=== PATIENT | male | born 1965 | race Caucasian/White ===

== ENCOUNTER → 2016-09-07 | Outpatient (CLI) | payer BC ==
--- NOTE | 2016-09-07 13:36 | CT ---
EXAMINATION TYPE: CT chest w con DATE OF EXAM: 09/07/2016 COMPARISON: NONE HISTORY: altelectasis CT DLP: 414.2 mGycm, Automated exposure control for dose reduction was used. CONTRAST: Performed injected with 100 mL of Omnipaque 300. TECHNIQUE: Axial images were obtained at 5 mm thick sections. Reconstructed images are reviewed on [employer] computer in the coronal plane. FINDINGS: Portion of the thyroid visualized is normal. Right basilar atelectasis is evident. Air bronchograms are present. Few scattered peripheral emphysematous blebs are present. No enlarged mediastinal or hilar adenopathy is evident. The ascending aorta diameter at the level o f the main pulmonary artery is 3.5 cm. The main pulmonary artery diameter at the bifurcation is 2.[address] sections are obtained through the upper abdomen. There is mild fatty infiltration liver. M ild atrophy of the pancreas is present. IMPRESSIONS: 1. Findings can be compatible with atelectasis at the right lung base. Pneumonia is considered less l ikely. Underlying mass is are not excluded. Follow-up with chest x-ray.
== END | disposition home or self-care (01) ==
LOC: RADCTMAIN 12:31
PROVIDERS: ATTEND Family Medicine
DX: J98.11 Atelectasis (principal); Z87.891 Personal history of nicotine dependence
CPT/HCPCS: 71260; Q9967

== ENCOUNTER 2016-09-20 10:03 | Day surgery (SDC) | payer BC ==
[2016-09-19 08:21] VITALS: BMI 28.7
[~2016-09-20 10:03] MED LIST: ALBUTEROL NEB (CONC) 2.5 MG/0.5 ML INHALATION ONE; LACTATED RINGERS 1,000 ML IV SCH; LIDOCAINE 1% 20 ML VIAL (10MG/ML) FOR IV START INTRADERMA PRN; LIDOCAINE 2% (PF) 20 MG/ML 10ML INHALATION ONE
--- NOTE | 2016-09-20 11:08 | FL ---
EXAMINATION TYPE: FL sniff test without CXR DATE OF EXAM: 09/20/2016 COMPARISON: NONE HISTORY: Diaphragm paralysis TECHNIQUE: Fluoroscopy.30sec fluoro time. 44 images FINDINGS: The diaphragms were evaluated normal breathing as well as upon sniffing. At normal inspiration there is elevation of the right hemidiaphragm relative to the left. There is pa radoxical motion of the right hemidiaphragm relative to its left-sided counterpart upon sniffing. Thi s suggests right-sided diaphragmatic paralysis. IMPRESSION: Findings suggestive right-sided diaphragmatic paralysis.
[2016-09-20 12:23] VITALS: TEMP 98.2
[2016-09-20] MEDS: LACTATED RINGERS 1,000 ML IV ONE ×2 (12:33→13:00)
[2016-09-20 12:38] LABS: Glucose,Whole Blood 103 mg/dL (75-99)
[2016-09-20] MEDS ORDERED: GLYCOPYRROLATE 0.2 MG/ML 2 ML VIAL ONE (13:02)
[2016-09-20] MEDS ORDERED: LIDOCAINE 1% INJ 10MG/ML (20 ML MDV) ONE (13:02)
[2016-09-20] MEDS ORDERED: HYDROmorphone (PF) 1 MG/ML ONE (13:02)
[2016-09-20] MEDS ORDERED: PROPOFOL 10 MG/ML 20 ML VIAL IV ONE (13:02)
[2016-09-20 13:42] VITALS: RESP 18
[2016-09-20 14:29] VITALS: BP 128/78; PULSE 98
[2016-09-20 18:40] LABS: RBC, Body Fluid 95 /uL
--- NOTE | 2016-09-21 08:51 | PCN ---
PROCEDURE: Bronchoscopy and bronchoalveolar lavage of the right middle lobe and the right lower lobe. PREOPERATIVE DIAGNOSIS: Right lower lobe collapse. POSTOPERATIVE DIAGNOSIS: Right lower lobe collapse. However, it is most likely right lower lobe collapse secondary to right hemidiaphragm paralysis. ANESTHESIA USED: Patient was given IV conscious sedation. Please refer to OBGYN SPECIALIST documentation. DESCRIPTION OF PROCEDURE: Patient was prepared according to the bronchoscopy protocol. O2 was applied via nasal cannula and via Ventimask applied over his mouth. We monitored during the whole procedure. His O2 saturation, blood pressure was intermittently monitored and cardiac rhythm was continuously monitored. After adequate IV conscious sedation, 2 mL of Lidocaine were instilled into the right nares and a bronchoscope was advanced through the right nares down to the area of the vocal cords which were noted to be patent and free of any lesions. Lidocaine was applied over the vocal cords, and the bronchoscope was advanced further down to the trachea. Minimal ( ) secretions were noted in the trachea and these were suctioned. More Lidocaine was applied over the tracheal wall, and the bronchoscope was advanced further down. Thorough examination was done of the [place], right upper lobe, right middle lobe, right lower lobe, left upper lobe, lingula and left lower lobe. There was no evidence of any endobronchial lesions. However, as I went down to the right lower lobe, the main opening was intact but the basilar and posterior as well as lateral segments were noted to be narrowed and easily collapsible. No evidence of endobronchial tumor was noted. Similar findings were noted in the right middle lobe bronchus. There was no evidence of right middle lobe syndrome. I was able to visualize the medial segment and the lateral segment of the right middle lobe without any difficulty, more so with lavaging both segments. After lavaging of the basilar segments of the right lower lobe and right middle lobe, lavage was sent for different diagnostic studies. Again, no evidence of any endobronchial pathology to suggest or cause right lower lobe atelectasis. Procedure was well tolerated, no evidence of any new complications , fluid obtained from the lavage was sent for different diagnostic studies including cytology and cultures. TOBIAS
== END 2016-09-20 14:30 | disposition home or self-care (01) ==
LOC: ORWHC2ENDO 10:03
PROVIDERS: ATTEND Internal Medicine
DX: J98.19 Other pulmonary collapse (principal); K21.9 Gastro-esophageal reflux disease without esophagitis; G47.33 Obstructive sleep apnea (adult) (pediatric); J44.9 Chronic obstructive pulmonary disease, unspecified; F17.210 Nicotine dependence, cigarettes, uncomplicated; Z79.899 Other long term (current) drug therapy; Z79.51 Long term (current) use of inhaled steroids; Z79.52 Long term (current) use of systemic steroids; Z79.2 Long term (current) use of antibiotics
CPT/HCPCS: 94640; 88108; 88305; 89050; 87070; 87205; 87116; 87102; 87206; 76000; 31624; J2001 ×2; J1170; J2704

== ENCOUNTER 2019-05-19 10:42 | Emergency (ER) | payer BC ==
[2019-05-19 11:01] VITALS: RESP 18; TEMP 97.8
--- NOTE | 2019-05-19 11:50 | ED ---
General Adult HPI - General Chief complaint: Shortness of Breath Stated complaint: SOB Time Seen by Provider: 05/19/19 11:11 Source: patient, RN notes reviewed, old records reviewed Mode of arrival: ambulatory Limitations: no limitations - History of Present Illness Initial comments: Patient is a 53-year-old male presents emergency department today with shortness of breath, dry cough, and fatigue. 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 He states is mainly feels very short of breath and dry cough. Patient is a smoker. Patient denies significant chest pain. He uses inhalers from time to time. Denies nausea, vomiting, loss of smell, headache, visual changes. - Related Data Home Medications Medication Instructions Recorded Confirmed Omeprazole [PriLOSEC] 20 mg PO AC-BRKFST 10/15/13 09/19/16 Sildenafil Citrate [Viagra] 25 mg PO DIRECTED PRN 10/15/13 09/19/16 Albuterol Inhaler (Bulk) [Ventolin 1 - 2 puff INHALATION Q6HR PRN 09/19/16 09/19/16 Hfa Inhaler] Fluticasone/Vilanterol [Breo 1 inhalation PO HS 09/19/16 09/19/16 Ellipta 100-25 Mcg Inhaler] Levofloxacin [Levaquin] 500 mg PO DAILY 09/19/16 09/19/16 Umeclidinium [place] [Incruse 1 puff INHALATION HS 09/19/16 09/19/16 Ellipta] predniSONE See Taper PO DAILY 09/19/16 09/19/16 Previous Rx's Medication Instructions Recorded Albuterol Inhaler [Ventolin Hfa 1 puff INHALATION RT-TID #1 puff 05/19/19 Inhaler] Albuterol Inhaler [Ventolin Hfa 1 puff INHALATION RT-TID #2 puff 05/19/19 Inhaler] Azithromycin [Zithromax Z-pack] 250 mg PO DIRECTED #6 tab 05/19/19 Azithromycin [Zithromax Z-pack] 250 mg PO DIRECTED #6 tab 05/19/19 predniSONE 50 mg PO DAILY #5 tablet 05/19/19 predniSONE 50 mg PO DAILY #5 tablet 05/19/19 Allergies Allergy/AdvReac Type Severity Reaction Status Date / Time No Known Allergies Allergy Verified 09/20/16 12:22 Review of Systems ROS Statement: Those systems with pertinent positive or pertinent negative responses have been documented in the HPI. ROS Other: All systems not noted in ROS Statement are negative. Past Medical History Past Medical History: GERD/Reflux Additional Past Medical History / Comment(s): 02/09 rt lung collapse Sep 2016,current steroid History of Any Multi-Drug Resistant Organisms: None Reported Date of last positivie culture/infection: 2010 MDRO Source:: BOIL ON CHEST Past Surgical History: Appendectomy Past Anesthesia/Blood Transfusion Reactions: Family History of Problems w/ Anesthesia Additional Past Anesthesia/Blood Transfusion Reaction / Comment(s): SUHA - SLOW TO AWAKEN, PONV. No hx blood transfusion Past Psychological History: No Psychological Hx Reported Smoking Status: Current every day smoker Past Alcohol Use History: Occasional Past Drug Use History: Marijuana - Past Family History Mother Family Medical History: No Reported History Father Family Medical History: Deep Vein Thrombosis (DVT) Additional Family Medical History / Comment(s): at age 89 had blood clots General Exam - General Exam Comments Initial Comments: 53-year-old male. Alert and oriented. No distress. Limitations: no limitations General appearance: alert, in no apparent distress Head exam: Present: atraumatic, normocephalic, normal inspection Eye exam: Present: normal appearance, PERRL, EOMI. Absent: scleral icterus, conjunctival injection, periorbital swelling ENT exam: Present: normal exam, mucous membranes moist Neck exam: Present: normal inspection. Absent: tenderness, meningismus, lymphadenopathy Respiratory exam: Present: wheezes. Absent: normal lung sounds bilaterally, respiratory distress, rales, rhonchi, stridor Cardiovascular Exam: Present: regular rate, normal rhythm, normal heart sounds. Absent: systolic murmur, diastolic murmur, rubs, gallop, clicks GI/Abdominal exam: Present: soft, normal bowel sounds. Absent: distended, tenderness, guarding, rebound, rigid Extremities exam: Present: normal inspection, full ROM, normal capillary refill. Absent: tenderness, pedal edema, joint swelling, calf tenderness Back exam: Present: normal inspection Neurological exam: Present: alert, oriented X3, CN II-XII intact Psychiatric exam: Present: normal affect, normal mood Skin exam: Present: warm, dry, intact, normal color. Absent: rash Course Vital Signs 05/19/19 05/19/19 05/19/19 10:57 11:30 12:00 Temperature 97.8 F Pulse Rate 98 97 Respiratory 18 18 Rate Blood Pressure 130/97 137/107 O2 Sat by Pulse 95 96 92 L Oximetry 05/19/19 13:00 Temperature Pulse Rate 80 Respiratory 18 Rate Blood Pressure 133/88 O2 Sat by Pulse 95 Oximetry Medical Decision Making - Medical Decision Making Patient is a 53-year-old male presents today for a valvular concerned for cough and difficulty breathing and wheezing. 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 Patient has wheezing. Patient was given IV over 15. Patient's blood work was reviewed mentally unremarkable assessment leukocytosis. Patient has chest x-ray shows evidence of a right perihilar infiltrate. With leukocy tosis, concern for infiltrates most likely bacterial pneumonia or bronchitis. He was wheezing and was given albuterol treatment. I discussed the with Dr. STOUT and he also examined the Patient. Determined Patient can be treated outpatient only with antibiotic and steroid. I discussed strict return parameters and he did have negative Covid testing. Discuss if still possibility of Covid virus with significant exposure and his symptoms. Discussed self quarantine. Patient understands treatment plan will comply. Return parameters were discussed. - Lab Data Result diagrams: 05/19/19 11:50 05/19/19 11:50 Lab Results 05/19/19 05/19/19 05/19/19 Range/Units 11:50 11:50 11:50 WBC 13.2 H (3.8-10.6) k/uL RBC 4.97 (4.30-5.90) m/uL Hgb 15.9 (13.0-17.5) gm/dL Hct 47.3 (39.0-53.0) % MCV 95.1 (80.0-100.0) fL MCH 32.1 (25.0-35.0) pg MCHC 33.7 (31.0-37.0) g/dL RDW 12.0 (11.5-15.5) % Plt Count 346 (150-450) k/uL Neutrophils % 68 % Lymphocytes % 19 % Monocytes % 5 % Eosinophils % 6 % Basophils % 0 % Neutrophils # 8.9 H (1.3-7.7) k/uL Lymphocytes # 2.5 (1.0-4.8) k/uL Monocytes # 0.6 (0-1.0) k/uL Eosinophils # 0.8 H (0-0.7) k/uL Basophils # 0.1 (0-0.2) k/uL PT 9.6 (9.0-12.0) sec INR 0.9 (<1.2) APTT 23.7 (22.0-30.0) sec Sodium 136 L (137-145) mmol/L Potassium 5.0 (3.5-5.1) mmol/L Chloride 102 (98-107) mmol/L Carbon Dioxide 28 (22-30) mmol/L Anion Gap 6 mmol/L BUN 18 (9-20) mg/dL Creatinine 0.74 (0.66-1.25) mg/dL Est GFR (CKD-EPI)AfAm >90 (>60 ml/min/1.73 sqM) Est GFR (CKD-EPI)NonAf >90 (>60 ml/min/1.73 sqM) Glucose 123 H (74-99) mg/dL Plasma Lactic Acid Piero (0.7-2.0) mmol/L Calcium 9.9 (8.4-10.2) mg/dL Magnesium 1.9 (1.6-2.3) mg/dL Ferritin 195.6 (22.0-322.0) ng/mL Total Bilirubin 0.7 (0.2-1.3) mg/dL AST 30 (17-59) U/L ALT 35 (4-49) U/L Alkaline Phosphatase 80 (38-126) U/L Lactate Dehydrogenase 400 (313-618) U/L C-Reactive Protein 5.2 (<10.0) mg/L Total Protein 8.3 H (6.3-8.2) g/dL Albumin 4.9 (3.5-5.0) g/dL Procalcitonin (0.02-0.09) ng/mL Coronavirus (PCR) (Not Detectd) Influenza Type A RNA (Not Detectd) Influenza Type B (PCR) (Not Detectd) 05/19/19 05/19/19 05/19/19 Range/Units 11:50 11:50 11:50 WBC (3.8-10.6) k/uL RBC (4.30-5.90) m/uL Hgb (13.0-17.5) gm/dL Hct (39.0-53.0) % MCV (80.0-100.0) fL MCH (25.0-35.0) pg MCHC (31.0-37.0) g/dL RDW (11.5-15.5) % Plt Count (150-450) k/uL Neutrophils % % Lymphocytes % % Monocytes % % Eosinophils % % Basophils % % Neutrophils # (1.3-7.7) k/uL Lymphocytes # (1.0-4.8) k/uL Monocytes # (0-1.0) k/uL Eosinophils # (0-0.7) k/uL Basophils # (0-0.2) k/uL PT (9.0-12.0) sec INR (<1.2) APTT (22.0-30.0) sec Sodium (137-145) mmol/L Potassium (3.5-5.1) mmol/L Chloride (98-107) mmol/L Carbon Dioxide (22-30) mmol/L Anion Gap mmol/L BUN (9-20) mg/dL Creatinine (0.66-1.25) mg/dL Est GFR (CKD-EPI)AfAm (>60 ml/min/1.73 sqM) Est GFR (CKD-EPI)NonAf (>60 ml/min/1.73 sqM) Glucose (74-99) mg/dL Plasma Lactic Acid Piero 1.3 (0.7-2.0) mmol/L Calcium (8.4-10.2) mg/dL Magnesium (1.6-2.3) mg/dL Ferritin (22.0-322.0) ng/mL Total Bilirubin (0.2-1.3) mg/dL AST (17-59) U/L ALT (4-49) U/L Alkaline Phosphatase (38-126) U/L Lactate Dehydrogenase (313-618) U/L C-Reactive Protein (<10.0) mg/L Total Protein (6.3-8.2) g/dL Albumin (3.5-5.0) g/dL Procalcitonin 0.05 (0.02-0.09) ng/mL Coronavirus (PCR) Not Detected (Not Detectd) Influenza Type A RNA Not Detected (Not Detectd) Influenza Type B (PCR) Not Detected (Not Detectd) 05/19/19 14:46 EKG performed 1219 shows normal sinus rhythm right superior axis deviation. Pulmonary disease pattern. Ventricular rate 92 beats were minute. Was 1:30 milliseconds. QS duration is 82 ms. QTc is 358/442 ms. - Radiology Data Radiology results: report reviewed Chest x-ray shows right infiltrate. Crying for bronchitis or pneumonia. Disposition Clinical Impression: Pneumonia Disposition: HOME SELF-CARE Condition: Good Instructions (If sedation given, give patient instructions): Bacterial Pneumoni a (ED) Additional Instructions: Patient should return if there is any worsening signs or symptoms. Using albuterol treatments at home and take meds as prescribed. Follow-up with your primary care physician. Patient should self quarantine as a suspected COVID for the next 14 days. Prescriptions: predniSONE 50 mg PO DAILY #5 tablet predniSONE 50 mg PO DAILY #5 tablet Albuterol Inhaler [Ventolin Hfa Inhaler] 1 puff INHALATION RT-TID #1 puff Albuterol Inhaler [Ventolin Hfa Inhaler] 1 puff INHALATION RT-TID #2 puff Azithromycin [Zithromax Z-pack] 250 mg PO DIRECTED #6 tab Azithromycin [Zithromax Z-pack] 250 mg PO DIRECTED #6 tab Is patient prescribed a controlled substance at d/c from ED?: No Referrals: Sherman Ellison MD [Primary Care Provider] - 1-2 days Time of Disposition: 13:12
[2019-05-19 12:08] LABS: Basophils # (A) 0.1 k/uL (0-0.2); Basophils % (A) 0 %; Eosinophils # (A) 0.8 k/uL (0-0.7); Eosinophils % (A) 6 %; HCT 47.3 % (39.0-53.0); HGB 15.9 gm/dL (13.0-17.5); Lymphocytes # (A) 2.5 k/uL (1.0-4.8); Lymphocytes % (A) 19 %; MCH 32.1 pg (25.0-35.0); MCHC 33.7 g/dL (31.0-37.0); MCV 95.1 fL (80.0-100.0); Mean Platelet Volume 8.4; Monocytes # (A) 0.6 k/uL (0-1.0); Monocytes % (A) 5 %; Neutrophils # (A) 8.9 k/uL (1.3-7.7); Neutrophils % (A) 68 %; Platelet Count 346 k/uL (150-450); RBC 4.97 m/uL (4.30-5.90); WBC 13.2 k/uL (3.8-10.6)
--- NOTE | 2019-05-19 12:21 | XR ---
EXAMINATION TYPE: XR chest 1V portable DATE OF EXAM: 05/19/2019 COMPARISON: 09/15/2016 INDICATION: Pneumonia TECHNIQUE: Single frontal view of the chest is obtained. FINDINGS: The heart size is upper limits of normal. The pulmonary vasculature is normal. There is mild right perihilar infiltrate. Correlate for acute bronchitis or pneumonia. There is chron ic elevation of the right diaphragm. IMPRESSION: 1. Right perihilar infiltrate. Correlate for bronchitis or pneumonia.
[2019-05-19 12:23] LABS: ALT 35 U/L (4-49); AST 30 U/L (17-59); African American GFR (CKD) >90 (>60 ml/min/1.73 sqM); Albumin 4.9 g/dL (3.5-5.0); Alkaline Phosphatase 80 U/L (38-126); Anion Gap 6 mmol/L; Blood Urea Nitrogen 18 mg/dL (9-20); C Reactive Protein 5.2 mg/L (<10.0); Calcium 9.9 mg/dL (8.4-10.2); Carbon Dioxide 28 mmol/L (22-30); Chloride 102 mmol/L (98-107); Glucose 123 mg/dL (74-99); LDH 400 U/L (313-618); Magnesium 1.9 mg/dL (1.6-2.3); Non-African American GFR(CKD) >90 (>60 ml/min/1.73 sqM); Sodium 136 mmol/L (137-145); Total Bilirubin 0.7 mg/dL (0.2-1.3); Total Protein 8.3 g/dL (6.3-8.2)
[2019-05-19] MEDS ORDERED: ALBUTEROL HFA INHALER INHALATION STA (12:26)
[2019-05-19] MEDS ORDERED: methylPREDNISolone SOD SUCCI 125 MG/2 ML VIAL IV STA (12:26)
[2019-05-19 12:27] LABS: INR 0.9 (<1.2); Partial Thromboplastin Time 23.7 sec (22.0-30.0); Prothrombin Time 9.6 sec (9.0-12.0)
[2019-05-19] MEDS ORDERED: cefTRIAXone IN SWFI 1,000 MG/10 ML SYRINGE IVP STA (12:35)
[2019-05-19 13:02] VITALS: BP 133/88; PULSE 80
[2019-05-19 18:59] LABS: Ferritin 195.6 ng/mL (22.0-322.0)
== END 2019-05-19 13:35 | disposition home or self-care (01) ==
LOC: EC 10:42
DX: J18.9 Pneumonia, unspecified organism (principal); Z20.828 Contact with and (suspected) exposure to other viral communicable diseases
CPT/HCPCS: 36415; 94640; 93005; 80053; 82728; 83605; 83615; 83735; 85025; 85610; 85730; 86140; 87040; 87502; 84145; 87635; 71045; 99285; 96374; 96375; J2930; J0696

== ENCOUNTER 2019-05-27 01:42 | Inpatient (IN) | payer BC ==
[2019-05-27] MEDS ORDERED: IPRATROPIUM-ALBUTEROL 3 ML NEB INHALATION STA (01:52)
--- NOTE | 2019-05-27 02:02 | ED ---
General Adult HPI - General Chief complaint: Shortness of Breath Stated complaint: SOB Time Seen by Provider: 05/27/19 01:51 Source: patient Mode of arrival: ambulatory Limitations: no limitations - History of Present Illness Initial comments: Dictation was produced using [employer] dictation software. please excuse any grammatical, word or spelling errors. This patient was cared for during a federal and state declared state of emergency secondary to Covid 19 Chief Complaint: 53-year-old male presents with dyspnea History of Present Illness: Patient is a 53-year-old male presents today with dyspnea. Patient works at the [employer]. He completed a course of azithromycin, prednisone. He is also given albuterol inhaler. Patient states his symptoms improved. Her last 48 hours patient states his symptoms get worse. He's been coughing, wheezing has been really short of breath. Patient feels like he cannot get any air. 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 Patient denies any constitutional symptoms. He does smoke. He continues to smoke but denies any history of COPD. He says primary care doctor recently and was prescribed Bactrim. The ROS documented in this emergency department record has been reviewed and confirmed by me. Those systems with pertinent positive or negative responses have been documented in the HPI. All other systems are other negative and/or noncontributory. PHYSICAL EXAM: General Impression: Alert and oriented x3, not in acute distress HEENT: Normocephalic atraumatic, extra-ocular movements intact, pupils equal and reactive to light bilaterally, mucous membranes moist. Cardiovascular: Heart regular rate and rhythm Chest: 3-4 word senses, no retractions, audibly wheezing Abdomen: Bowel sounds present, abdomen soft, non-tender, non-distended, no organomegaly Musculoskeletal: Pulses present and equal in all extremities, no peripheral edema Motor: no focal deficits noted Neurological: CN II-XII grossly intact, no focal motor or sensory deficits noted Skin: Intact with no visualized rashes Psych: Normal affect and mood ED course: 53-year-old male presents with recurrent dyspnea. Upon arrival shows heart rate of 104, rest of vital signs within acceptable limits. Laboratory evaluation obtained. Leukocytosis 17.6. Positive neutrophilia. Coag panel unremarkable. Metabolic panel is negative. Current status test is negative. Chest x-ray shows right basilar infiltrate. Clinical presentation consistent with lobar pneumonia. Considering patient had completed a course of antibiotics and has persistent symptoms. Patient's failed outpatient treatment. Patient will be admitted for pneumonia, early sepsis. Patient be admitted to Dr. Newby's service. Pulmonology consulted.Patient reevaluated at bedside with improvement of tachycardia and respiratory symptoms after breathing treatm ent. EKG interpretation: Ventricular rate 111, sinus tachycardia,. Interval 1:30, QRS 82, QTc 440. No CA prolongation, no QTC prolongation, no ST or T-wave changes noted. Overall, this EKG is unremarkable - Related Data Home Medications Medication Instructions Recorded Confirmed Omeprazole [PriLOSEC] 20 mg PO AC-BRKFST 10/15/13 09/19/16 Sildenafil Citrate [Viagra] 25 mg PO DIRECTED PRN 10/15/13 09/19/16 Albuterol Inhaler (Bulk) [Ventolin 1 - 2 puff INHALATION Q6HR PRN 09/19/16 09/19/16 Hfa Inhaler] Fluticasone/Vilanterol [Breo 1 inhalation PO HS 09/19/16 09/19/16 Ellipta 100-25 Mcg Inhaler] Levofloxacin [Levaquin] 500 mg PO DAILY 09/19/16 09/19/16 Umeclidinium [place] [Incruse 1 puff INHALATION HS 09/19/16 09/19/16 Ellipta] predniSONE See Taper PO DAILY 09/19/16 09/19/16 Previous Rx's Medication Instructions Recorded Albuterol Inhaler [Ventolin Hfa 1 puff INHALATION RT-TID #1 puff 05/19/19 Inhaler] Albuterol Inhaler [Ventolin Hfa 1 puff INHALATION RT-TID #2 puff 05/19/19 Inhaler] Azithromycin [Zithromax Z-pack] 250 mg PO DIRECTED #6 tab 05/19/19 Azithromycin [Zithromax Z-pack] 250 mg PO DIRECTED #6 tab 05/19/19 predniSONE 50 mg PO DAILY #5 tablet 05/19/19 predniSONE 50 mg PO DAILY #5 tablet 05/19/19 Allergies Allergy/AdvReac Type Severity Reaction Status Date / Time No Known Allergies Allergy Verified 09/20/16 12:22 Review of Systems ROS Statement: Those systems with pertinent positive or pertinent negative responses have been documented in the HPI. ROS Other: All systems not noted in ROS Statement are negative. Past Medical History Past Medical History: GERD/Reflux Additional Past Medical History / Comment(s): 02/09 rt lung collapse August/Sep 2016,current steroid History of Any Multi-Drug Resistant Organisms: None Reported Date of last positivie culture/infection: 2010 MDRO Source:: BOIL ON CHEST Past Surgical History: Appendectomy Past Anesthesia/Blood Transfusion Reactions: Family History of Problems w/ Anesthesia Additional Past Anesthesia/Blood Transfusion Reaction / Comment(s): SUHA - SLOW TO AWAKEN, PONV. No hx blood transfusion Past Psychological History: No Psychological Hx Reported Smoking Status: Current every day smoker Past Alcohol Use History: Occasional Past Drug Use History: Marijuana - Past Family History Mother Family Medical History: No Reported History Father Family Medical History: Deep Vein Thrombosis (DVT) Additional Family Medical History / Comment(s): at age 89 had blood clots General Exam Limitations: no limitations Course Vital Signs 05/27/19 01:45 Temperature 97.9 F Pulse Rate 104 H Respiratory 18 Rate Blood Pressure 128/82 O2 Sat by Pulse 96 Oximetry Medical Decision Making - Lab Data Result diagrams: 05/27/19 02:06 05/27/19 02:06 Lab Results 05/27/19 05/27/19 05/27/19 Range/Units 02:04 02:06 02:06 WBC 17.6 H (3.8-10.6) k/uL RBC 4.90 (4.30-5.90) m/uL Hgb 16.6 (13.0-17.5) gm/dL Hct 47.5 (39.0-53.0) % MCV 96.8 (80.0-100.0) fL MCH 33.9 (25.0-35.0) pg MCHC 35.0 (31.0-37.0) g/dL RDW 12.2 (11.5-15.5) % Plt Count 311 (150-450) k/uL Neutrophils % 87 % Lymphocytes % 5 % Monocytes % 3 % Eosinophils % 5 % Basophils % 0 % Neutrophils # 15.3 H (1.3-7.7) k/uL Lymphocytes # 0.8 L (1.0-4.8) k/uL Monocytes # 0.5 (0-1.0) k/uL Eosinophils # 0.8 H (0-0.7) k/uL Basophils # 0.1 (0-0.2) k/uL PT 10.0 (9.0-12.0) sec INR 1.0 (<1.2) APTT 23.4 (22.0-30.0) sec Sodium (137-145) mmol/L Potassium (3.5-5.1) mmol/L Chloride (98-107) mmol/L Carbon Dioxide (22-30) mmol/L Anion Gap mmol/L BUN (9-20) mg/dL Creatinine (0.66-1.25) mg/dL Est GFR (CKD-EPI)AfAm (>60 ml/min/1.73 sqM) Est GFR (CKD-EPI)NonAf (>60 ml/min/1.73 sqM) Glucose (74-99) mg/dL Calcium (8.4-10.2) mg/dL Troponin I (0.000-0.034) ng/mL NT-Pro-B Natriuret Pep pg/mL Coronavirus (PCR) Not Detected (Not Detectd) 05/27/19 05/27/19 05/27/19 Range/Units 02:06 02:06 02:06 WBC (3.8-10.6) k/uL RBC (4.30-5.90) m/uL Hgb (13.0-17.5) gm/dL Hct (39.0-53.0) % MCV (80.0-100.0) fL MCH (25.0-35.0) pg MCHC (31.0-37.0) g/dL RDW (11.5-15.5) % Plt Count (150-450) k/uL Neutrophils % % Lymphocytes % % Monocytes % % Eosinophils % % Basophils % % Neutrophils # (1.3-7.7) k/uL Lymphocytes # (1.0-4.8) k/uL Monocytes # (0-1.0) k/uL Eosinophils # (0-0.7) k/uL Basophils # (0-0.2) k/uL PT (9.0-12.0) sec INR (<1.2) APTT (22.0-30.0) sec Sodium 132 L (137-145) mmol/L Potassium 4.3 (3.5-5.1) mmol/L Chloride 95 L (98-107) mmol/L Carbon Dioxide 27 (22-30) mmol/L Anion Gap 10 mmol/L BUN 14 (9-20) mg/dL Creatinine 0.70 (0.66-1.25) mg/dL Est GFR (CKD-EPI)AfAm >90 (>60 ml/min/1.73 sqM) Est GFR (CKD-EPI)NonAf >90 (>60 ml/min/1.73 sqM) Glucose 164 H (74-99) mg/dL Calcium 9.1 (8.4-10.2) mg/dL Troponin I <0.012 (0.000-0.034) ng/mL NT-Pro-B Natriuret Pep 70 pg/mL Coronavirus (PCR) (Not Detectd) Disposition Clinical Impression: Pneumonia Disposition: ADMITTED IP TO THIS HOSP Condition: Fair Referrals: Sherman Ellison MD [Primary Care Provider] - 1-2 days Decision Time: 03:01
[2019-05-27] MEDS ORDERED: ALBUTEROL HFA INHALER INHALATION STA (02:12)
--- NOTE | 2019-05-27 02:16 | XR ---
EXAMINATION TYPE: XR chest 1V portable DATE OF EXAM: 05/27/2019 COMPARISON: 05/19/2019 HISTORY: Short of breath. Cough. TECHNIQUE: FINDINGS: There is elevated right diaphragm with infiltrate and atelectasis at the right lung base. T here is mild atelectasis left midlung. There is coarsening of interstitial markings. There is no fredrick s heart failure. IMPRESSION: There is some chronic infiltrate and atelectasis at the right lung base and chronic eleva zeina right diaphragm unchanged. There is probably pulmonary fibrosis. No definite heart failure.
[2019-05-27 02:24] LABS: Basophils # (A) 0.1 k/uL (0-0.2); Basophils % (A) 0 %; Eosinophils # (A) 0.8 k/uL (0-0.7); Eosinophils % (A) 5 %; HCT 47.5 % (39.0-53.0); HGB 16.6 gm/dL (13.0-17.5); Lymphocytes # (A) 0.8 k/uL (1.0-4.8); Lymphocytes % (A) 5 %; MCH 33.9 pg (25.0-35.0); MCV 96.8 fL (80.0-100.0); Mean Platelet Volume 8.4; Monocytes # (A) 0.5 k/uL (0-1.0); Monocytes % (A) 3 %; Neutrophils # (A) 15.3 k/uL (1.3-7.7); Neutrophils % (A) 87 %; Platelet Count 311 k/uL (150-450); RDW 12.2 % (11.5-15.5); WBC 17.6 k/uL (3.8-10.6)
[2019-05-27 02:25] LABS: African American GFR (CKD) >90 (>60 ml/min/1.73 sqM); Anion Gap 10 mmol/L; Blood Urea Nitrogen 14 mg/dL (9-20); Calcium 9.1 mg/dL (8.4-10.2); Carbon Dioxide 27 mmol/L (22-30); Chloride 95 mmol/L (98-107); Glucose 164 mg/dL (74-99); Non-African American GFR(CKD) >90 (>60 ml/min/1.73 sqM); Potassium 4.3 mmol/L (3.5-5.1); Sodium 132 mmol/L (137-145)
[2019-05-27 02:28] LABS: Partial Thromboplastin Time 23.4 sec (22.0-30.0)
[2019-05-27] MEDS ORDERED: AZITHROMYCIN 500 MG in SODIUM CHLORIDE 0.9% 250 ML IVPB STA (02:43)
[2019-05-27] MEDS ORDERED: cefTRIAXone IN SWFI 1,000 MG/10 ML SYRINGE IVP STA (02:43)
[2019-05-27] MEDS ORDERED: DEXAMETHASONE SOD PHOSPHATE 10 MG/ML 1 ML VIAL IV STA (02:45)
[2019-05-27] MEDS ORDERED: PNEUMONIA PROTOCOL UTILIZED 1 EACH MISC PO PRN (02:56)
[2019-05-27] MEDS ORDERED: IPRATROPIUM-ALBUTEROL 3 ML NEB INHALATION SCH ×2 (08:00→12:00)
[2019-05-27] MEDS ORDERED: ALBUTEROL HFA INHALER INHALATION SCH ×2 (08:00→12:00)
[2019-05-27] MEDS ORDERED: IPRATROPIUM-ALBUTEROL 3 ML NEB INHALATION PRN ×2 (10:13→12:14)
[2019-05-27] MEDS ORDERED: RX INFO: IV CONTRAST WAS GIVEN 1 EACH MISC MISCELLANE PRN (10:14)
[2019-05-27] MEDS ORDERED: ALBUTEROL HFA INHALER INHALATION PRN ×2 (10:22→11:31)
--- NOTE | 2019-05-27 11:17 | CT ---
EXAMINATION TYPE: CT chest w con DATE OF EXAM: 05/27/2019 COMPARISON: 09/07/2016 HISTORY: COPD, SOB CT DLP: 457.6 mGycm, Automated exposure control for dose reduction was used. CONTRAST: Performed injected with 100 mL of Isovue 300. TECHNIQUE: Axial images were obtained at 5 mm thick sections. Reconstructed images are reviewed on [facility] computer in the coronal plane. FINDINGS: Portion of the thyroid visualized is normal. Few emphysematous blebs and bulla are at the lung apices. There is infiltrate along the right diaphra gm which is elevated within the right middle lobe. Atelectasis and pneumonia could be considered. Pan e posterior medial dependent right lung infiltrate may be present likely atelectasis There is a 1.0 cm pretracheal lymph node in the superior mediastinum. An additional pretracheal lymp h node above the [place] measures 1.1 cm. A left peribronchial lymph node measures 0.9 cm there are ad ditional shotty lymph nodes present. The Ascending aorta diameter at the level of the main pulmonary artery is 3.7 cm. The main pulmonary artery diameter at the bifurcation is 2.[address] sections are obtained through the upper abdomen. There is mild fatty infiltration within [facility] liver. IMPRESSIONS: 1. Compressive atelectasis is present at the right middle lobe lung base. The right diaphragm is elev ated. Some dependent posterior right lung compressive atelectasis present. 2. Mild emphysematous changes. 3. A few scattered enlarged mediastinal lymph nodes discussed above. Additional shotty lymphadenopath y is present.
[2019-05-27] MEDS ORDERED: SILDENAFIL 20 MG TAB PO PRN (11:31)
--- NOTE | 2019-05-27 12:14 | P.CNPUL ---
History of Present Illness Consult date: 05/27/19 Reason for consult: dyspnea, cough Chief complaint: Shortness of breath History of present illness: 53-year-old white male patient of Dr. Ellison, with past medical history of COPD, history of chronic elevation of the right diaphragm, chronic and ongoing history of smoking, GERD/reflux, who used to follow with Dr. Gallardo in the pulmonary clinic. 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 Patient was in the emergency department on 05/19/2019 with complaints of shortness of breath, dry cough and fatigue. Denied any chest pain, he only uses his albuterol inhaler occasionally, patient used to be on Breo Ellipta and Inkruse inhaler a few years back, however it does not look like he hasn't refilled them in a while. Denied any nausea, vomiting loss of smell, headaches or visual changes. He denied any fever. Patient has shortness of breath and wheezing. His blood work was unremarkable at that time, with only mild leukocytosis, and diabetes EF 13.2, lymphocyte at 2.5, BMP was within normal limits, ferritin, LDH, CRP were all within normal limits. Influenza, with 19 testing was negative. Pro-calcitonin was negative at 0.05. Chest x-ray showed a right infiltrate, possibility of bronchitis or pneumonia, patient was given prednisone taper, Ventolin inhaler, and Zithromax, and was told to follow- up with his primary care provider in one to 2 days. Patient states he felt better while she was on steroids and antibiotics however when he completed them his symptoms of shortness of breath recurred and today on 05/27/2019 patient presented to the emergency department with complaints of worsening dyspnea, coughing, wheezing. Patient continues to smoke. He denies any body aches, fever or chills. He did follow up with his PCP and was prescribed Bactrim. Chest x-ray was completed today on 05/27/2019 showing chronic infiltrate and atelectasis at the right lung base and chronically elevated right diaphragm which is unchanged from previous chest x-ray, mild atelectasis at the left mid lung, and coarsening of interstitial markings. Vital signs are stable, patient is afebrile. Labs today show white blood cell count of 17.6, hemoglobin is 16.6, leukocyte level is 0.8, INR was 1.0, sodium is 132, potassium is 4.3, chloride is 95, CO2 is 27, BUN is 14, creatinine 0.7, troponin was less than 0.012, proBNP was within normal limits at 70, coronavirus test was repeated and was negative. Patient was started on Zithromax, Rocephin and we were asked to see the patient in evaluation for his shortness of breath Review of Systems All systems: negative Constitutional: Denies chills, Denies fever Eyes: denies blurred vision, denies pain Ears, nose, mouth and throat: Denies headache, Denies sore throat Cardiovascular: Denies chest pain, Denies shortness of breath Respiratory: Reports cough, Reports dyspnea Gastrointestinal: Denies abdominal pain, Denies diarrhea, Denies nausea, Denies vomiting Musculoskeletal: Denies myalgias Integumentary: Denies pruritus, Denies rash Neurological: Denies numbness, Denies weakness Psychiatric: Denies anxiety, Denies depression Endocrine: Denies fatigue, Denies weight change Past Medical History Past Medical History: GERD/Reflux Additional Past Medical History / Comment(s): 02/09 rt lung collapse August/Sep 2016,current steroid History of Any Multi-Drug Resistant Organisms: None Reported Date of last positivie culture/infection: 2010 MDRO Source:: BOIL ON CHEST Past Surgical History: Appendectomy Past Anesthesia/Blood Transfusion Reactions: Family History of Problems w/ Anesthesia Additional Past Anesthesia/Blood Transfusion Reaction / Comment(s): SUHA - SLOW TO AWAKEN, PONV. No hx blood transfusion Past Psychological History: No Psychological Hx Reported Smoking Status: Current every day smoker Past Alcohol Use History: Occasional Additional Past Alcohol Use History / Comment(s): started smoking at age 11,1ppd, last 2 weeks smoking 1-2 cig per day Past Drug Use History: Marijuana - Past Family History Mother Family Medical History: No Reported History Father Family Medical History: Deep Vein Thrombosis (DVT) Additional Family Medical History / Comment(s): at age 89 had blood clots Medications and Allergies Home Medications Medication Instructions Recorded Confirmed Type Omeprazole [PriLOSEC] 20 mg PO AC-BRKFST 10/15/13 05/27/19 History Albuterol Inhaler [Ventolin Hfa 1 puff INHALATION RT-TID PRN 05/27/19 05/27/19 History Inhaler] Sildenafil Citrate [Sildenafil] 20 mg PO DAILY PRN 05/27/19 05/27/19 History Allergies Allergy/AdvReac Type Severity Reaction Status Date / Time No Known Allergies Allergy Verified 05/27/19 11:04 Physical Exam Vitals: Vital Signs Temp Pulse Pulse Resp BP BP Pulse Ox 05/27/19 07:00 98.8 F 102 H 20 128/78 96 05/27/19 03:14 94 20 127/88 95 05/27/19 01:45 97.9 F 104 H 18 128/82 96 Intake and Output 05/26/19 05/27/19 05/27/19 22:59 06:59 14:59 Intake Total 350 Balance 350 Intake: Intake, IV Titration 250 Amount Azithromycin 500 mg In 250 Sodium Chloride 0.9% 250 ml @ 250 mls/hr IVPB ONCE STA Rx#:[id number] Oral 100 Other: Voiding Method Toilet Urinal # Voids 1 Weight 90.718 kg GENERAL EXAM: Alert, pleasant, 53-year-old white male, with a pulse ox of 96% on 4 L comfortable in no apparent distress. HEAD: Normocephalic/atraumatic. EYES: Normal reaction of pupils, equal size. Conjunctiva pink, sclera white. NOSE: Clear with pink turbinates. THROAT: No erythema or exudates. NECK: No masses, no JVD, no thyroid enlargement, no adenopathy. CHEST: No chest wall deformity. Symmetrical expansion. LUNGS: Equal air entry with diminished breath sounds bilaterally, and prolonged expiratory phase CVS: Regular rate and rhythm, normal S1 and S2, no gallops, no murmurs, no rubs ABDOMEN: Soft, nontender. No hepatosplenomegaly, normal bowel sounds, no guarding or rigidity. EXTREMITIES: No clubbing, no edema, no cyanosis, 2+ pulses and upper and lower extremities. MUSCULOSKELETAL: Muscle strength and tone normal. SPINE: No scoliosis or deformity SKIN: No rashes CENTRAL NERVOUS SYSTEM: Alert and oriented -3. No focal deficits, tone is normal in all 4 extremities. PSYCHIATRIC: Alert and oriented -3. Appropriate affect. Intact judgment and insight. Results - Laboratory Findings CBC and BMP: 05/27/19 02:06 05/27/19 02:06 PT/INR, D-dimer PT 10.0 sec (9.0-12.0) 05/27/19 02:06 INR 1.0 (<1.2) 05/27/19 02:06 Abnormal lab findings: Abnormal Labs 05/27/19 05/27/19 02:06 02:06 WBC 17.6 H Neutrophils # 15.3 H Lymphocytes # 0.8 L Eosinophils # 0.8 H Sodium 132 L Chloride 95 L Glucose 164 H - Diagnostic Findings Chest x-ray: report reviewed, image reviewed Assessment and Plan Plan: Assessment: #1. Dyspnea, shortness of breath, related to acute exacerbation of COPD, no definite evidence of pneumonia on the chest x-ray, chest x-ray shows chronic infiltrate and atelectasis at the right lung base and chronically elevated right diaphragm, and mild atelectasis at the left mid lung. Chest CT showed mild emphysematous changes, compressive atelectasis at the right middle lobe lung base, elevated right hemidiaphragm,-dependent right lung compressive atelectasis, a few scattered enlarged mediastinal lymph nodes, with 1 cm pretracheal lymph node in the superior mediastinum, and additional pretracheal lymph node above the [place] measuring 1.1 cm, a left peribronchial lymph node measuring 0.9 cm with an additional shoddy lymph node. COVID 19 testing was negative 2, on 05/19/2019 and on 05/27/2019. Influenza screen was negative #2. Chronic elevation of the right hemidiaphragm, with unclear etiology #3. History of chronic obstructive pulmonary disease, not oxygen or steroid dependent #4. Chronic smoker, patient carries a [id number] smoking history, currently down to 2 cigarettes per day #5. GERD/reflux #6. History of right lower lobe collapse and atelectasis with right diaphragm paralysis, and patient had bronchoscopy on 09/21/2016, which showed no endobronchial tumor, and bronchoalveolar lavage cytology showed no cytologically malignant cells Plan: Continue with Zithromax and Rocephin, no clear evidence of pneumonia on the chest x-ray in the CAT scan, mediastinal adenopathy noted on the computed tomography scan of the chest and will be followed. We'll add IV steroids, nebulized DuoNeb, Pulmicort, Perforomist. Follow blood work in the morning. Will continue to follow I performed a history & physical examination of the patient and discussed their management with my nurse practitioner, Eli Banks. I reviewed the nurse practitioner's note and agree with the documented findings and plan of care. Lung sounds are positive for diminished breath sounds, with prolongation of expiratory phase. The findings and the impression was discussed with the patient. I attest to the documentation by the nurse practitioner. Time with Patient: Greater than 30
[2019-05-27] MEDS: methylPREDNISolone SOD SUCCI 125 MG/2 ML VIAL IV SCH ×3 (13:16→23:53)
[2019-05-27] MEDS: IPRATROPIUM-ALBUTEROL 3 ML NEB INHALATION SCH ×2 (15:40→19:55)
[2019-05-27 16:31] LABS: Glucose,Whole Blood 252 mg/dL (75-99)
[2019-05-27] MEDS: INSULIN ASPART (NovoLOG) 100 UNIT/ML VIAL SQ SCH ×2 (16:47→21:17)
--- NOTE | 2019-05-27 19:18 | P.HPIM ---
History of Present Illness H&P Date: 05/27/19 Chief Complaint: Short of breath History of presenting complaint: This is a 53-year-old patient of Dr. Ellison. Chronic stable medical conditions include GERD, nicotine dependence, also had some right lung collapse in 2017. Patient works at the [employer]. 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 There is no fever. Presented to the ER. Was given Zithromax albuterol and steroids. [place] better symptoms came back again. Patient also had headache body ache comfortable with his bowel movements a day. Also wheezing. Perspiring. Some yellow sputum. Patient's COVID 19 initial testing was negative. Yesterday he felt really bad could not breathe at all. And decided to come in. Feeling very tight in the chest. Review of systems: GEN.: Tired EYES: None HEENT: None NECK: None RESPIRATORY: As above CARDIOVASCULAR: No precordial symptoms GASTROINTESTINAL: As above with abdominal pain GENITOURINARY: None MUSCULOSKELETAL: None LYMPHATICS: None HEMATOLOGICAL: None PSYCHIATRY: None NEUROLOGICAL: None Past medical history to include: GERD, 1/5 right leg collapse in 2017 Social history: Smoking for 32 years a pack a day. Some marijuana. Works at the [employer]. Physical examination: VITAL SIGNS: 97.9, 104, 18, 128/82, 96% on room air GENERAL: BMI 28.7, sitting up, awake. EYES: Pupils equal. Conjunctiva normal. HEENT: External appearance of nose and ears normal, oral cavity grossly normal. NECK: JVD not raised; masses not palpable. HEART: First and second heart sounds are normal; no edema. LUNGS: Respiratory rate increased, decreased breath sounds some excluded wheezing. ABDOMEN: Soft, nontender, liver spleen not palpable, no masses palpable. PSYCH: Alert and oriented x3; mood and affect normal. NEUROLOGICAL: Cranial nerves grossly intact; no facial asymmetry, power and sensation grossly intact. LYMPHATICS: No lymph nodes palpable in the axilla and neck INVESTIGATIONS, reviewed in the clinical context: White count 7.6 hemoglobin 16.6 platelets 311 neutrophils 15.3 lymphocytes 0.8 esophageal 0.8 sodium 132 potassium 4.3 creatinine 0.70 Pro calcitonin 0.05 Coronavirus PCR-not detected on May 18 and also on this admission Influenza type A and type B both negative EKG tracing personally reviewed by me-sinus rhythm Chest x-ray film personally reviewed by me-elevated right diaphragm questionable infiltrate Computed tomography scan of the chest emphysematous blebs and bullae the lung apices infiltrate along the right diaphragm some lymph nodes are positive Assessment: -Right sided pneumonia suspect gram-negative organism having failed outpatient treatment -Acute COPD exacerbation in a current smoker -Chronic nicotine dependence patient cigarette smoker -History of partial right lung collapse, wonder if it's persistent -We will rule out paralysis of right diaphragm -GERD Plan: Patient started on DuoNeb, IV ceftriaxone and Zithromax, and his steroids IV Solu-Medrol. Lovenox for DVT prophylaxis. Care was discussed with the patient. Pulmonary was consulted. Order a sniff test Smoke cessation counseling: This was done with the patient. Nicotine patch is being given. More than 3 minutes was spent for this Past Medical History Past Medical History: GERD/Reflux Additional Past Medical History / Comment(s): 02/09 rt lung collapse August/Sep 2016,current steroid History of Any Multi-Drug Resistant Organisms: None Reported Date of last positivie culture/infection: 2010 MDRO Source:: BOIL ON CHEST Past Surgical History: Appendectomy Past Anesthesia/Blood Transfusion Reactions: Family History of Problems w/ Anesthesia Additional Past Anesthesia/Blood Transfusion Reaction / Comment(s): SUHA - SLOW TO AWAKEN, PONV. No hx blood transfusion Past Psychological History: No Psychological Hx Reported Smoking Status: Current every day smoker Past Alcohol Use History: Occasional Additional Past Alcohol Use History / Comment(s): started smoking at age 11,1ppd , last 2 weeks smoking 1-2 cig per day Past Drug Use History: Marijuana - Past Family History Mother Family Medical History: No Reported History Father Family Medical History: Deep Vein Thrombosis (DVT) Additional Family Medical History / Comment(s): at age 89 had blood clots Medications and Allergies Home Medications Medication Instructions Recorded Confirmed Type Omeprazole [PriLOSEC] 20 mg PO AC-BRKFST 10/15/13 05/27/19 History Albuterol Inhaler [Ventolin Hfa 1 puff INHALATION RT-TID PRN 05/27/19 05/27/19 History Inhaler] Sildenafil Citrate [Sildenafil] 20 mg PO DAILY PRN 05/27/19 05/27/19 History Allergies Allergy/AdvReac Type Severity Reaction Status Date / Time No Known Allergies Allergy Verified 05/27/19 11:04 Physical Exam Vitals: Vital Signs Temp Pulse Pulse Resp BP BP Pulse Ox 05/27/19 07:00 98.8 F 102 H 20 128/78 96 05/27/19 03:14 94 20 127/88 95 05/27/19 01:45 97.9 F 104 H 18 128/82 96 Intake and Output 05/26/19 05/27/19 05/27/19 22:59 06:59 14:59 Intake Total 350 Balance 350 Intake: Intake, IV Titration 250 Amount Azithromycin 500 mg In 250 Sodium Chloride 0.9% 250 ml @ 250 mls/hr IVPB ONCE STA Rx#:[id number] Oral 100 Other: Voiding Method Toilet Urinal # Voids 1 Weight 90.718 kg Results CBC & Chem 7: 05/27/19 02:06 05/27/19 02:06 Labs: Abnormal Lab Results - Last 24 Hours (Table) 05/27/19 05/27/19 Range/Units 02:06 02:06 WBC 17.6 H (3.8-10.6) k/uL Neutrophils # 15.3 H (1.3-7.7) k/uL Lymphocytes # 0.8 L (1.0-4.8) k/uL Eosinophils # 0.8 H (0-0.7) k/uL Sodium 132 L (137-145) mmol/L Chloride 95 L (98-107) mmol/L Glucose 164 H (74-99) mg/dL Thrombosis Risk Factor Assmnt - Choose All That Apply Any of the Below Risk Factors Present?: Yes Each Factor Represents 1 point: Age 41-60 years Other Risk Factors: No Other congenital or acquired thrombophilia - If yes, enter type in comment: No Thrombosis Risk Factor Assessment Total Risk Factor Score: 1 Thrombosis Risk Factor Assessment Level: Low Risk
[2019-05-27] MEDS ORDERED: FORMOTEROL FUMARATE 20 MCG/2 ML NEBU INHALATION SCH ×2 (20:00)
[2019-05-27] MEDS ORDERED: SYMBICORT 80-4.5 MCG INHALER INHALATION SCH (20:00)
[2019-05-27] MEDS ORDERED: BUDESONIDE 0.5 MG/2 ML NEBU INHALATION SCH ×2 (20:00)
[2019-05-27 20:14] LABS: Glucose,Whole Blood 182 mg/dL (75-99)
[2019-05-27] MEDS: ENOXAPARIN 40 MG/0.4 ML SYRINGE SQ SCH (21:17)
[2019-05-28] MEDS: AZITHROMYCIN 500 MG TAB PO SCH (02:52)
[2019-05-28] MEDS: methylPREDNISolone SOD SUCCI 125 MG/2 ML VIAL IV SCH ×4 (05:31→23:14)
[2019-05-28] MEDS ORDERED: ALBUTEROL HFA INHALER INHALATION PRN (06:46)
[2019-05-28 06:55] LABS: Glucose,Whole Blood 190 mg/dL (75-99)
[2019-05-28] MEDS: ENOXAPARIN 40 MG/0.4 ML SYRINGE SQ SCH (07:38)
[2019-05-28] MEDS: INSULIN ASPART (NovoLOG) 100 UNIT/ML VIAL SQ SCH ×4 (07:38→20:51)
[2019-05-28] MEDS: PANTOPRAZOLE 40 MG TABLET PO SCH (07:38)
[2019-05-28] MEDS: SYMBICORT 80-4.5 MCG INHALER INHALATION SCH ×2 (08:27→19:35)
[2019-05-28] MEDS: TIOTROPIUM 18 MCG/PUFF INHALER INHALATION SCH (08:27)
[2019-05-28] MEDS: ALBUTEROL HFA INHALER INHALATION SCH ×4 (08:28→19:35)
--- NOTE | 2019-05-28 11:41 | FL ---
EXAMINATION TYPE: FL sniff test without CXR DATE OF EXAM: 05/28/2019 COMPARISON: Correlation CT 05/27/2019 HISTORY: 53-year-old male elevated right hemidiaphragm TECHNIQUE: Real time fluoroscopy during normal quite breathing, deep breathing, and sniffing maneuver . Total fluoroscopy time: 1.23 minutes. Total images: 8 FINDINGS: There is asymmetric elevation of the right hemidiaphragm. During normal breathing and deep breathing, there is initial, slight hesitancy in right hemidiaphragm atic excursion at each end point. However, during sniffing maneuver, there is aureliano paradoxical movement demonstrated. IMPRESSION: Findings compatible with right hemidiaphragmatic paralysis.
[2019-05-28 11:52] LABS: Glucose,Whole Blood 202 mg/dL (75-99)
--- NOTE | 2019-05-28 13:43 | P.PN ---
Subjective Progress Note Date: 05/28/19 Principal diagnosis: Shortness of breath, dyspnea and cough 53-year-old white male patient of Dr. Ellison, with past medical history of COPD, history of chronic elevation of the right diaphragm, chronic and ongoing history of smoking, GERD/reflux, who used to follow with Dr. Gallardo in the pulmonary clinic. 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 Patient was in the emergency department on 05/19/2019 with complaints of shortness of breath, dry cough and fatigue. Denied any chest pain, he only uses his albuterol inhaler occasionally, patient used to be on Breo Ellipta and Inkruse inhaler a few years back, however it does not look like he hasn't refilled them in a while. Denied any nausea, vomiting loss of smell, headaches or visual changes. He denied any fever. Patient has shortness of breath and wheezing. His blood work was unremarkable at that time, with only mild leukocytosis, and diabetes EF 13.2, lymphocyte at 2.5, BMP was within normal limits, ferritin, LDH, CRP were all within normal limits. Influenza, with 19 testing was negative. Pro-calcitonin was negative at 0.05. Chest x-ray showed a right infiltrate, possibility of bronchitis or pneumonia, patient was given prednisone taper, Ventolin inhaler, and Zithromax, and was told to follow- up with his primary care provider in one to 2 days. Patient states he felt better while she was on steroids and antibiotics however when he completed them his symptoms of shortness of breath recurred and today on 05/27/2019 patient presented to the emergency department with complaints of worsening dyspnea, coughing, wheezing. Patient continues to smoke. He denies any body aches, fever or chills. He did follow up with his PCP and was prescribed Bactrim. Chest x-ray was completed today on 05/27/2019 showing chronic infiltrate and atelectasis at the right lung base and chronically elevated right diaphragm which is unchanged from previous chest x-ray, mild atelectasis at the left mid lung, and coarsening of interstitial markings. Vital signs are stable, patient is afebrile. Labs today show white blood cell count of 17.6, hemoglobin is 16.6, leukocyte level is 0.8, INR was 1.0, sodium is 132, potassium is 4.3, chloride is 95, CO2 is 27, BUN is 14, creatinine 0.7, troponin was less than 0.012, proBNP was within normal limits at 70, coronavirus test was repeated and was negative. Patient was started on Zithromax, Rocephin and we were asked to see the patient in evaluation for his shortness of breath On 05/28/2019 patient seen in follow-up on the general medical floor, he is breathing easier today, less bronchospastic, less short of breath. Vital signs are stable, then 2 L of oxygen and the pulse ox 94%, no fever or chills, breathing more comfortably today, lung sounds reveal end expiratory wheezes, sounding better on today's exam is Covid 19 test was negative 2, she remains on steroids, Symbicort, and albuterol,, patient is receiving Spiriva, azithromycin and Rocephin for antibiotic coverage, but no sputum cultures are negative thus far, final cultures pending, no acute events overnight. Clinically he is improving, probably can be considered for discharge home tomorrow Objective - Vital Signs Vital signs: Vital Signs Temp 97.8 F 05/28/19 11:00 Pulse 74 05/28/19 11:00 Resp 17 05/28/19 11:00 BP 124/81 05/28/19 11:00 Pulse Ox 94 L 05/28/19 11:00 Intake & Output 05/27/19 05/28/19 05/28/19 18:59 06:59 18:59 Intake Total 400 Output Total 1200 475 Balance -800 -475 Intake: IV 400 cefTRIAXone 1 gm In 400 Sodium Chloride 0.9% 50 ml @ 100 mls/hr IVPB Q24H [facility] Rx#:[id number] Output: Urine 1200 475 Other: Voiding Method Toilet Urinal # Voids 1 - Exam GENERAL EXAM: Alert, pleasant, 53-year-old white male, with a pulse ox of 94% on 2 L comfortable in no apparent distress. HEAD: Normocephalic/atraumatic. EYES: Normal reaction of pupils, equal size. Conjunctiva pink, sclera white. NOSE: Clear with pink turbinates. THROAT: No erythema or exudates. NECK: No masses, no JVD, no thyroid enlargement, no adenopathy. CHEST: No chest wall deformity. Symmetrical expansion. LUNGS: Equal air entry with improved air entry bilaterally, slightly bronchospastic breath sounds bilaterally, and prolonged expiratory phase CVS: Regular rate and rhythm, normal S1 and S2, no gallops, no murmurs, no rubs ABDOMEN: Soft, nontender. No hepatosplenomegaly, normal bowel sounds, no guarding or rigidity. EXTREMITIES: No clubbing, no edema, no cyanosis, 2+ pulses and upper and lower extremities. MUSCULOSKELETAL: Muscle strength and tone normal. SPINE: No scoliosis or deformity SKIN: No rashes CENTRAL NERVOUS SYSTEM: Alert and oriented -3. No focal deficits, tone is normal in all 4 extremities. PSYCHIATRIC: Alert and oriented -3. Appropriate affect. Intact judgment and insight. - Labs CBC & Chem 7: 05/27/19 02:06 05/27/19 02:06 Labs: Abnormal Lab Results - Last 24 Hours (Table) 05/27/19 05/27/19 05/28/19 Range/Units 16:29 20:12 06:53 POC Glucose (mg/dL) 252 H 182 H 190 H (75-99) mg/dL 05/28/19 Range/Units 11:51 POC Glucose (mg/dL) 202 H (75-99) mg/dL Microbiology - Last 24 Hours (Table) 05/27/19 02:57 Blood Culture - Preliminary Blood No Growth after 24 hours 05/27/19 12:10 Gram Stain - Preliminary Sputum Sputum Culture - Preliminary Assessment and Plan Plan: Assessment: #1. Dyspnea, shortness of breath, related to acute exacerbation of COPD, no definite evidence of pneumonia on the chest x-ray, chest x-ray shows chronic infiltrate and atelectasis at the right lung base and chronically elevated right diaphragm, and mild atelectasis at the left mid lung. Chest CT showed mild emphysematous changes, compressive atelectasis at the right middle lobe lung base, elevated right hemidiaphragm,-dependent right lung compressive atelectasis, a few scattered enlarged mediastinal lymph nodes, with 1 cm pretracheal lymph node in the superior mediastinum, and additional pretracheal lymph node above the [place] measuring 1.1 cm, a left peribronchial lymph node measuring 0.9 cm with an additional shoddy lymph node. COVID 19 testing was negative 2, on 05/19/2019 and on 05/27/2019. Influenza screen was negative #2. Chronic elevation of the right hemidiaphragm, with unclear etiology #3. History of chronic obstructive pulmonary disease, not oxygen or steroid dependent #4. Chronic smoker, patient carries a [id number] smoking history, currently down to 2 cigarettes per day #5. GERD/reflux #6. History of right lower lobe collapse and atelectasis with right diaphragm paralysis, and patient had bronchoscopy on 09/21/2016, which showed no endobronchial tumor, and bronchoalveolar lavage cytology showed no cytologically malignant cells Plan: Continue current medical treatment, clinically patient is improving, FiO2 is down to 2 L, increase activity as tolerated, less dyspneic and bronchospastic, afebrile, patient can be considered for discharge home in the next 24 hours if he continues to improve. I performed a history & physical examination of the patient and discussed their management with my nurse practitioner, Eli Banks. I reviewed the nurse practitioner's note and agree with the documented findings and plan of care. Lung sounds are positive for diminished breath sounds, with prolongation of expiratory phase. The findings and the impression was discussed with the patient. I attest to the documentation by the nurse practitioner. Time with Patient: Less than 30
--- NOTE | 2019-05-28 15:23 | P.PN ---
Subjective This is a 53-year-old patient of Dr. Ellison. Chronic stable medical conditions include GERD, nicotine dependence, also had some right lung collapse in 2017. 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 There is no fever. Presented to the ER. Was given Zithromax albuterol and steroids. [place] better symptoms came back again. Patient also had headache body ache comfortable with his bowel movements a day. Also wheezing. Perspiring. Some yellow sputum. Patient's COVID 19 initial testing was negative. Yesterday he felt really bad could not breathe at all. And decided to come in. Feeling very tight in the chest. Objective - Vital Signs Vital signs: Vital Signs Temp 97.8 F 05/28/19 11:00 Pulse 74 05/28/19 11:00 Resp 17 05/28/19 11:00 BP 124/81 05/28/19 11:00 Pulse Ox 94 L 05/28/19 11:00 Intake & Output 05/27/19 05/28/19 05/28/19 18:59 06:59 18:59 Intake Total 400 Output Total 1200 475 Balance -800 -475 Intake: IV 400 cefTRIAXone 1 gm In 400 Sodium Chloride 0.9% 50 ml @ 100 mls/hr IVPB Q24H [facility] Rx#:[id number] Output: Urine 1200 475 Other: Voiding Method Toilet Urinal # Voids 1 2 - Exam GENERAL: The patient is alert and oriented x3, not in any acute distress. Well developed, well nourished. HEENT: Pupils are round and equally reacting to light. EOMI. No scleral icterus. No conjunctival pallor. Normocephalic, atraumatic. No pharyngeal erythema. No thyromegaly. CARDIOVASCULAR: S1 and S2 present. No murmurs, rubs, or gallops. -PULMONARY: Chest is clear to auscultation, scattered bilateral wheezing ABDOMEN: Soft, nontender, nondistended, normoactive bowel sounds. No palpable organomegaly. MUSCULOSKELETAL: No joint swelling or deformity. EXTREMITIES: No cyanosis, clubbing, or pedal edema. NEUROLOGICAL: Gross neurological examination did not reveal any focal deficits. SKIN: No rashes. no petechiae. - Labs CBC & Chem 7: 05/27/19 02:06 05/27/19 02:06 Labs: Abnormal Lab Results - Last 24 Hours (Table) 05/27/19 05/27/19 05/28/19 Range/Units 16:29 20:12 06:53 POC Glucose (mg/dL) 252 H 182 H 190 H (75-99) mg/dL 05/28/19 Range/Units 11:51 POC Glucose (mg/dL) 202 H (75-99) mg/dL Microbiology - Last 24 Hours (Table) 05/27/19 02:57 Blood Culture - Preliminary Blood No Growth after 24 hours 05/27/19 12:10 Gram Stain - Preliminary Sputum Sputum Culture - Preliminary Assessment and Plan Assessment: -Right sided pneumonia suspect gram-negative organism having failed outpatient treatment -Acute COPD exacerbation in a current smoker -Chronic nicotine dependence patient cigarette smoker -History of partial right lung collapse, wonder if it's persistent -We will rule out paralysis of right diaphragm -GERD Plan: This is a pleasant 53 years old male who presents with acute COPD exacerbation rather than pneumonia on the chest x-ray. Continue with Zithromax. Pulmonary consult. Continue with steroids. 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 Patient says that he follows with Dr. Gallardo and he is willing to call and make appointment for himself in 2 weeks as instructed. Labs and medication were reviewed.. Continue same treatment. Continue with symptomatic treatment. Resume home medication. Monitor lytes and vitals. DVT and GI prophylaxis. Further recommendations of the clinical course of the patient DVT prophylaxis: Subcutaneous Lovenox GI Prophylaxis: Pepcid Prognosis is guarded
[2019-05-28 16:40] LABS: Glucose,Whole Blood 256 mg/dL (75-99)
[2019-05-28 20:15] LABS: Glucose,Whole Blood 245 mg/dL (75-99)
[2019-05-28] MEDS: FAMOTIDINE 20 MG/2 ML VIAL IV SCH (20:50)
[2019-05-28 21:27] LABS: Basophils % (A) 0 %; Eosinophils # (A) 0.1 k/uL (0-0.7); Eosinophils % (A) 1 %; HCT 40.3 % (39.0-53.0); Lymphocytes # (A) 0.9 k/uL (1.0-4.8); Lymphocytes % (A) 5 %; MCH 32.7 pg (25.0-35.0); MCHC 33.2 g/dL (31.0-37.0); MCV 98.3 fL (80.0-100.0); Mean Platelet Volume 8.5; Monocytes # (A) 0.4 k/uL (0-1.0); Monocytes % (A) 2 %; Neutrophils # (A) 17.6 k/uL (1.3-7.7); Neutrophils % (A) 92 %; Platelet Count 313 k/uL (150-450); RBC 4.09 m/uL (4.30-5.90); RDW 12.7 % (11.5-15.5); WBC 19.2 k/uL (3.8-10.6)
[2019-05-28 21:32] LABS: HGB 13.4 gm/dL (13.0-17.5)
[2019-05-28 21:44] LABS: Potassium 5.3 mmol/L (3.5-5.1)
[2019-05-28 21:45] LABS: African American GFR (CKD) >90 (>60 ml/min/1.73 sqM); Anion Gap 8 mmol/L; Blood Urea Nitrogen 28 mg/dL (9-20); Calcium 8.8 mg/dL (8.4-10.2); Carbon Dioxide 23 mmol/L (22-30); Chloride 102 mmol/L (98-107); Glucose 289 mg/dL (74-99); Non-African American GFR(CKD) >90 (>60 ml/min/1.73 sqM); Sodium 133 mmol/L (137-145)
[2019-05-29] MEDS: AZITHROMYCIN 500 MG TAB PO SCH (02:26)
[2019-05-29] MEDS: methylPREDNISolone SOD SUCCI 125 MG/2 ML VIAL IV SCH ×2 (05:46→12:58)
[2019-05-29 06:54] LABS: Glucose,Whole Blood 180 mg/dL (75-99)
[2019-05-29] MEDS: TIOTROPIUM 18 MCG/PUFF INHALER INHALATION SCH (07:17)
[2019-05-29] MEDS: ALBUTEROL HFA INHALER INHALATION SCH ×2 (07:17→11:40)
[2019-05-29] MEDS: SYMBICORT 80-4.5 MCG INHALER INHALATION SCH (07:17)
[2019-05-29 07:50] VITALS: BP 130/80; PULSE 73; RESP 16; TEMP 98.4
[2019-05-29 07:55] LABS: Basophils % (A) 0 %; Eosinophils % (A) 0 %; HCT 39.1 % (39.0-53.0); HGB 12.6 gm/dL (13.0-17.5); Lymphocytes % (A) 5 %; MCH 31.9 pg (25.0-35.0); MCHC 32.2 g/dL (31.0-37.0); MCV 99.2 fL (80.0-100.0); Mean Platelet Volume 8.6; Monocytes # (A) 0.6 k/uL (0-1.0); Monocytes % (A) 3 %; Neutrophils # (A) 17.2 k/uL (1.3-7.7); Neutrophils % (A) 91 %; Platelet Count 275 k/uL (150-450); RBC 3.94 m/uL (4.30-5.90); RDW 12.6 % (11.5-15.5)
[2019-05-29] MEDS: INSULIN ASPART (NovoLOG) 100 UNIT/ML VIAL SQ SCH ×2 (07:57→12:57)
[2019-05-29] MEDS: PANTOPRAZOLE 40 MG TABLET PO SCH (07:57)
[2019-05-29] MEDS: ENOXAPARIN 40 MG/0.4 ML SYRINGE SQ SCH (07:57)
[2019-05-29] MEDS: FAMOTIDINE 20 MG/2 ML VIAL IV SCH (07:57)
[2019-05-29 12:06] LABS: Glucose,Whole Blood 266 mg/dL (75-99)
--- NOTE | 2019-05-29 12:43 | P.DS ---
Providers Date of admission: 05/28/19 14:42 Attending physician: Elver Newby Consults: 05/27/19 02:57 Consult Physician Routine Consulting Provider: Viktoria Alvarez Consult Reason/Comments: dyspnea Do you want consulting provider notified?: Yes Primary care physician: Sherman Ellison Hospital Course: Diagnoses: -Acute COPD exacerbation in a current smoker, possible acute tracheobronchitis, with no evidence of pneumonia or pulmonary evaluation, hest CT showed mild emphysematous changes, compressive atelectasis at the right middle lobe lung base with an enlarged lymph node -Mediastinal lymphadenopathy -suspected Covid, nasal swab (PCR) came back negative on 05/26, however test is not 100% sensitive, so it cannot rule out entirely -Chronic nicotine dependence patient cigarette smoker -Leukocytosis, multifactorial due to tracheobronchitis and steroid effect. -Hyperglycemia, due to the steroid effect. Expected to go back to normal after finishing his course of therapy with steroids. Follow-up outpatient -History of partial right lung collapse, wonder if it's persistent -GERD Hospital course: This is a 53-year-old patient of Dr. Ellison. Chronic stable medical conditions include GERD, nicotine dependence, also had some right lung collapse in 2017. 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 Patient presents with dyspnea and found to have acute COPD exacerbation, with no clear evidence of pneumonia area pulmonary evaluated the patient and patient was treated with IV steroids and antibiotics with bronchodilators. CT of the thorax right middle lobe atelectasis, elevated right diaphragm, mild emphysematous changes and enlarged external lymph nodes . COVID 19 testing was negative 2, on 05/19/2019 and on 05/27/2019. Influenza screen was negative. Patient works at [employer] and he has 3 of his colleagues tested positive as per patient. Although this is came back negative for Covid 19, it is not 100% sensitive so it cannot ruled out. However patient improved with the current therapy. Also we checked the patient and found He Does Not Need Oxygen at Home. Sick leave is provided for the patient upon his request. Also patient was provided with prescription for nebulizer. Patient will be discharged on inhaler, Taper steroids and short course of oral antibiotic Patient dyspnea and significantly improved patient back close to his baseline. And on the day of discharge no dyspnea, no chest pain, no abdominal pain, no nausea vomiting, no change in urine or bowel habits. No fever. Patient was cleared for discharge with pulmonary service Problems and management plan were discussed with the patient and he verbalized understanding and acceptance Patient was found stable and can be discharged home however he needs follow-up as an outpatient. Patient was instructed to follow up with PCP Dr. Ellison within one week and patient agrees. 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 Gallardo in 2 weeks (he made appointment on 06/17 ) and patient agrees. Patient wants to make his own appointment Gen: patient is a AAOx3, no distress CVS: S1-S2, RRR, no murmur Lungs: B/L CTA, no wheezing Abdomen: soft, no distention, no tenderness, positive bowel sounds Extremity: no leg edema or induration Time spent more than 35 minutes Patient Condition at Discharge: Fair Plan - Discharge Summary Discharge Rx Participant: Yes New Discharge Prescriptions: New Amoxicillin/Potassium Clav [Augmentin 875-125 Tablet] 1 tab PO Q12HR 3 Days #6 tab predniSONE 10 mg PO DIRECTED #40 tab Tiotropium 18 Mcg/Puff [Spiriva] 1 puff INHALATION RT-DAILY #1 inhaler Albuterol Inhaler [Ventolin Hfa Inhaler] 2 puff INHALATION RT-Q2H PRN #1 inh PRN Reason: Shortness Of Breath Or Wheezing Continue Omeprazole [PriLOSEC] 20 mg PO AC-BRKFST Albuterol Inhaler [Ventolin Hfa Inhaler] 1 puff INHALATION RT-TID PRN PRN Reason: Shortness Of Breath Discontinued Sildenafil Citrate [Sildenafil] 20 mg PO DAILY PRN PRN Reason: E.D. Discharge Medication List Omeprazole [PriLOSEC] 20 mg PO AC-BRKFST 10/15/13 [History] Albuterol Inhaler [Ventolin Hfa Inhaler] 1 puff INHALATION RT-TID PRN 05/27/19 [History] Albuterol Inhaler [Ventolin Hfa Inhaler] 2 puff INHALATION RT-Q2H PRN #1 inh 05/29/19 [Rx] Amoxicillin/Potassium Clav [Augmentin 875-125 Tablet] 1 tab PO Q12HR 3 Days #6 tab 05/29/19 [Rx] Tiotropium 18 Mcg/Puff [Spiriva] 1 puff INHALATION RT-DAILY #1 inhaler 05/29/19 [Rx] predniSONE 10 mg PO DIRECTED #40 tab 05/29/19 [Rx] Follow up Appointment(s)/Referral(s): Sherman Ellison MD [Primary Care Provider] - 1-2 days Gary Tyson MD [STAFF PHYSICIAN] - 06/18/19 10:00 am (Follow-up for your lung disease and enlarged lymph nodes in the chest) Activity/Diet/Wound Care/Special Instructions: Low carbohydrate diet Activity is limited till you see your doctor Discharge Disposition: HOME SELF-CARE
--- NOTE | 2019-05-29 13:35 | P.PN ---
Subjective Progress Note Date: 05/29/19 Principal diagnosis: Shortness of breath, dyspnea and cough 53-year-old white male patient of Dr. Ellison, with past medical history of COPD, history of chronic elevation of the right diaphragm, chronic and ongoing history of smoking, GERD/reflux, who used to follow with Dr. Gallardo in the pulmonary clinic. 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 Patient was in the emergency department on 05/19/2019 with complaints of shortness of breath, dry cough and fatigue. Denied any chest pain, he only uses his albuterol inhaler occasionally, patient used to be on Breo Ellipta and Inkruse inhaler a few years back, however it does not look like he hasn't refilled them in a while. Denied any nausea, vomiting loss of smell, headaches or visual changes. He denied any fever. Patient has shortness of breath and wheezing. His blood work was unremarkable at that time, with only mild leukocytosis, and diabetes EF 13.2, lymphocyte at 2.5, BMP was within normal limits, ferritin, LDH, CRP were all within normal limits. Influenza, with 19 testing was negative. Pro-calcitonin was negative at 0.05. Chest x-ray showed a right infiltrate, possibility of bronchitis or pneumonia, patient was given prednisone taper, Ventolin inhaler, and Zithromax, and was told to follow- up with his primary care provider in one to 2 days. Patient states he felt better while she was on steroids and antibiotics however when he completed them his symptoms of shortness of breath recurred and today on 05/27/2019 patient presented to the emergency department with complaints of worsening dyspnea, coughing, wheezing. Patient continues to smoke. He denies any body aches, fever or chills. He did follow up with his PCP and was prescribed Bactrim. Chest x-ray was completed today on 05/27/2019 showing chronic infiltrate and atelectasis at the right lung base and chronically elevated right diaphragm which is unchanged from previous chest x-ray, mild atelectasis at the left mid lung, and coarsening of interstitial markings. Vital signs are stable, patient is afebrile. Labs today show white blood cell count of 17.6, hemoglobin is 16.6, leukocyte level is 0.8, INR was 1.0, sodium is 132, potassium is 4.3, chloride is 95, CO2 is 27, BUN is 14, creatinine 0.7, troponin was less than 0.012, proBNP was within normal limits at 70, coronavirus test was repeated and was negative. Patient was started on Zithromax, Rocephin and we were asked to see the patient in evaluation for his shortness of breath On 05/28/2019 patient seen in follow-up on the general medical floor, he is breathing easier today, less bronchospastic, less short of breath. Vital signs are stable, then 2 L of oxygen and the pulse ox 94%, no fever or chills, breathing more comfortably today, lung sounds reveal end expiratory wheezes, sounding better on today's exam is Covid 19 test was negative 2, she remains on steroids, Symbicort, and albuterol,, patient is receiving Spiriva, azithromycin and Rocephin for antibiotic coverage, but no sputum cultures are negative thus far, final cultures pending, no acute events overnight. Clinically he is improving, probably can be considered for discharge home tomorrow. On 05/29/2019 patient seen in follow-up on general medical floor, he is breathing easier, less dyspneic, less bronchospastic, he is on 2 L of oxygen, his pulse ox of 95%, which of the oxygen off the patient, and ambulated him in the hallway, on room air, and his pulse ox maintained at 91 percent, no acute events overnight. Today's labs have been reviewed, white blood cell count is stable at 19.0, hemoglobin is 12.6, potassium is 5.1. No other labs, blood and sputum cultures have been negative, -7 stable, his been afebrile, his been treated with combination of Zithromax Rocephin IV steroids and inhalers. Improving, can be considered for discharge home today. Objective - Vital Signs Vital signs: Vital Signs Temp 98.4 F 05/29/19 07:17 Pulse 73 05/29/19 07:17 Resp 16 05/29/19 08:00 BP 130/80 05/29/19 07:17 Pulse Ox 94 L 05/29/19 07:17 Intake & Output 05/28/19 05/29/19 05/29/19 18:59 06:59 18:59 Intake Total 50 Balance 50 Intake: Intake, IV Titration 50 Amount cefTRIAXone 1 gm In 50 Sodium Chloride 0.9% 50 ml @ 100 mls/hr IVPB Q24H [facility] Rx#:[id number] Other: Voiding Method Toilet Toilet Toilet Urinal Urinal Urinal # Voids 2 1 - Exam GENERAL EXAM: Alert, pleasant, 53-year-old white male, with a pulse ox of 95% on 2 L comfortable in no apparent distress. HEAD: Normocephalic/atraumatic. EYES: Normal reaction of pupils, equal size. Conjunctiva pink, sclera white. NOSE: Clear with pink turbinates. THROAT: No erythema or exudates. NECK: No masses, no JVD, no thyroid enlargement, no adenopathy. CHEST: No chest wall deformity. Symmetrical expansion. LUNGS: Equal air entry with improved air entry bilaterally, slightly bronchos pastic breath sounds bilaterally, and prolonged expiratory phase CVS: Regular rate and rhythm, normal S1 and S2, no gallops, no murmurs, no rubs ABDOMEN: Soft, nontender. No hepatosplenomegaly, normal bowel sounds, no guarding or rigidity. EXTREMITIES: No clubbing, no edema, no cyanosis, 2+ pulses and upper and lower extremities. MUSCULOSKELETAL: Muscle strength and tone normal. SPINE: No scoliosis or deformity SKIN: No rashes CENTRAL NERVOUS SYSTEM: Alert and oriented -3. No focal deficits, tone is normal in all 4 extremities. PSYCHIATRIC: Alert and oriented -3. Appropriate affect. Intact judgment and insight. - Labs CBC & Chem 7: 05/29/19 07:08 05/29/19 07:08 Labs: Abnormal Lab Results - Last 24 Hours (Table) 05/28/19 05/28/19 05/28/19 Range/Units 16:34 20:12 21:16 WBC 19.2 H (3.8-10.6) k/uL RBC 4.09 L (4.30-5.90) m/uL Hgb (13.0-17.5) gm/dL Neutrophils # 17.6 H (1.3-7.7) k/uL Lymphocytes # 0.9 L (1.0-4.8) k/uL Sodium (137-145) mmol/L Potassium (3.5-5.1) mmol/L BUN (9-20) mg/dL Glucose (74-99) mg/dL POC Glucose (mg/dL) 256 H 245 H (75-99) mg/dL 05/28/19 05/29/19 05/29/19 Range/Units 21:16 06:50 07:08 WBC 19.0 H (3.8-10.6) k/uL RBC 3.94 L (4.30-5.90) m/uL Hgb 12.6 L (13.0-17.5) gm/dL Neutrophils # 17.2 H (1.3-7.7) k/uL Lymphocytes # (1.0-4.8) k/uL Sodium 133 L (137-145) mmol/L Potassium 5.3 H (3.5-5.1) mmol/L BUN 28 H (9-20) mg/dL Glucose 289 H (74-99) mg/dL POC Glucose (mg/dL) 180 H (75-99) mg/dL 05/29/19 Range/Units 12:04 WBC (3.8-10.6) k/uL RBC (4.30-5.90) m/uL Hgb (13.0-17.5) gm/dL Neutrophils # (1.3-7.7) k/uL Lymphocytes # (1.0-4.8) k/uL Sodium (137-145) mmol/L Potassium (3.5-5.1) mmol/L BUN (9-20) mg/dL Glucose (74-99) mg/dL POC Glucose (mg/dL) 266 H (75-99) mg/dL Microbiology - Last 24 Hours (Table) 05/27/19 12:10 Gram Stain - Final Sputum Sputum Culture - Final 05/27/19 02:57 Blood Culture - Preliminary Blood No Growth after 48 hours Assessment and Plan Plan: Assessment: #1. Dyspnea, shortness of breath, related to acute exacerbation of COPD, no definite evidence of pneumonia on the chest x-ray, chest x-ray shows chronic infiltrate and atelectasis at the right lung base and chronically elevated right diaphragm, and mild atelectasis at the left mid lung. Chest CT showed mild emphysematous changes, compressive atelectasis at the right middle lobe lung base, elevated right hemidiaphragm,-dependent right lung compressive atelectasis, a few scattered enlarged mediastinal lymph nodes, with 1 cm pretracheal lymph node in the superior mediastinum, and additional pretracheal lymph node above the [place] measuring 1.1 cm, a left peribronchial lymph node measuring 0.9 cm with an additional shoddy lymph node. COVID 19 testing was negative 2, on 05/19/2019 and on 05/27/2019. Influenza screen was negative #2. Chronic elevation of the right hemidiaphragm, with unclear etiology #3. History of chronic obstructive pulmonary disease, not oxygen or steroid dependent #4. Chronic smoker, patient carries a [id number] smoking history, currently down to 2 cigarettes per day #5. GERD/reflux #6. 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 Alvarez in the office in one to 2 weeks I performed a history & physical examination of the patient and discussed their management with my nurse practitioner, Eli Banks. I reviewed the nurse practitioner's note and agree with the documented findings and plan of care. Lung sounds are positive for diminished breath sounds, with prolongation of expiratory phase. The findings and the impression was discussed with the patient. I attest to the documentation by the nurse practitioner. Time with Patient: Less than 30
--- NOTE | 2019-05-29 15:53 | CDI ---
Documentation Clarification Form Date: 05/29/2019 02:22:00 PM From: Mary Monaco RN, CCDS Admit Date: 05/28/2019 02:42:00 PM Patient Name: Nico Hope Visit Number: [id number] Discharge Date: 05/29/2019 01:58:00 PM ATTENTION: The Clinical Documentation Specialists (CDI) and [facility] Coding Staff appreciate your assistance in clarifying documentation. Please respond to the clarification below the line at the bottom and electronically sign. The CDI & [facility] Coding staff will review the response and follow-up if needed. Please note: Queries are made part of the Legal Health Record. If you have any questions, please contact the author of this message via ITS. Dr. Whitfield Sheet Per discharge summary the patient was admitted COPD exacerbation, pneumonia was ruled out. Rapid COVID 05/18 and Rapid COVID on 05/26 is negative. 05/28 Discharge summary has "although this is come back negative for Covid -19, it is no 100% sensitive so it cannot ruled out". "Patient improved with the current therapy". Patient history/risk factors per the H&P: COPD, Current every day smoker Clinical Indicators 53-year old male presents with dyspnea. He reports he has completed a course of Zithromycin, Prednisone in the outpatient setting. He feels his symptoms has gotten worse last 48 hours. He has been in contact with several individuals who tested positive for Covid-19. CT of chest on 05/26 reported compressive atelectasis at the right middle lobe lung base. The right diaphragm is elevated. Mild emphysematous changes. A few scattered enlarged mediastinal lymph nodes. Additional shotty lymphadenopathy is present VS on admission 05/27 T: 98.2 , P: 84 , R 218 , Sat 94 % 2/L NC Labs on admission 05/26: WBC 17.6 Neutrophilia 15.3 Procalcitonin 0.05 (Per Pulmonary Dr. Alvarez) from 05/18 Influenza test obtained 05/18 was reported as negative Treatment: Solu-medrol 60 mm IV q 6 hrs 05/26-05/28 Pulmonary consult 05/26 COVID 19 testing was negative x2 Zithromax 500 mg po qd for five days (05/26-05/27) In order to capture the severity of condition, please clarify the COVID-19 status: COVID Ruled Out False negative, treating for COVID-19 infection Other, please specify COVID-19 Was not rule out completely, however most likely the patient does not have Covid 19 the suspicion is low as he is improved with the current therapy. Patient was instructed with the same and to follow quarantine recommendations MTDD
== END 2019-05-29 13:58 | disposition home or self-care (01) | DRG 191 ==
LOC: EC 01:42 → 4SSUR 02:57 → OBSVTOIN 05-28 14:42
PROVIDERS: ADMIT Hospitalist; ATTEND Hospitalist
DX: J43.9 Emphysema, unspecified (principal); J98.11 Atelectasis; J98.6 Disorders of diaphragm; J20.9 Acute bronchitis, unspecified; Z20.828 Contact with and (suspected) exposure to other viral communicable diseases; R73.9 Hyperglycemia, unspecified; T38.0X5A Adverse effect of glucocorticoids and synthetic analogues, initial encounter; R59.0 Localized enlarged lymph nodes; K21.9 Gastro-esophageal reflux disease without esophagitis; F17.210 Nicotine dependence, cigarettes, uncomplicated; Z71.6 Tobacco abuse counseling; Z79.899 Other long term (current) drug therapy; Z90.49 Acquired absence of other specified parts of digestive tract; Z98.890 Other specified postprocedural states; Z84.89 Family history of other specified conditions; Z83.2 Family history of diseases of the blood and blood-forming organs and certain disorders involving the immune mechanism
CPT/HCPCS: 36415; 71045; 71260; 76000; 80048; 83880; 84132; 84484; 85025; 85610; 85730; 87040; 87070; 87205; 87635; 93005; 94640; 94760; 96365; 96375; 99285

== ENCOUNTER → 2023-02-21 | Outpatient (CLI) | payer BC ==
--- NOTE | 2023-02-21 09:59 | CTL ---
EXAMINATION TYPE: CT Low Dose Lung DATE OF EXAM: 02/21/2023 9:26 AM CLINICAL INDICATION:Male, 57 years old with history of Z12.2 ENCNTR SCREEN FOR MALIGNANT NEOPLASM F17 .21; smoker , history of tobacco use. COMPARISON: 05/27/2019 TECHNIQUE: Multiple axial non-contrast scans were obtained from approximately the lung apices through the upper abdomen. Coronal and sagittal reformatted images were obtained. Low dose technique was uti lized. CT DLP: 111.1 mGycm, Automated exposure control for dose reduction was used. CT Contrast: Contrast used: None Oral contrast used: None FINDINGS: ======== Lack of intravenous contrast and low dose technique limits the evaluation of the vascular and soft ti ssue structures. LUNGS: No evidence of pulmonary fibrosis. No evidence of focal consolidation, pneumothorax or pleural effusion. Mild centrilobular emphysema changes are seen throughout the lungs. Mild paraseptal emphysema also pr esent. Peripheral reticulation present throughout the lungs. Nodules: RUL: None. RML: None. RLL: None. ROSLYN: None. LLL: Calcified granuloma series 6 image 36. AIRWAY: Patent and unremarkable. HEART: Size within normal limits. MEDIASTINUM: No gross evidence of adenopathy. VASCULATURE: No aortic aneurysm. MUSCULOSKELETAL: Mild disc degeneration changes are present throughout the thoracolumbar spine. SOFT TISSUES/LYMPH NODES: Mild gynecomastia changes bilaterally. LOWER NECK: No significant findings. UPPER ABDOMEN: No significant findings. IMPRESSION: 1. No clinically significant pulmonary nodules. 2. Mild emphysema changes and interstitial coarsening/interstitial lung disease.. CT LUNG RAD AND CT CHEST RECOMMENDATION: Lung-Rad 2 Benign Appearance or Behavior: Continue annual sc reening with LDCT in 12 months. S Modifier (other clinically significant findings): None Recommend smoking cessation (if current smoker), or continuation of smoking cessation (if prior smoke r). Annual screening for lung cancer with low-dose computed tomography is recommended in adults ages 55 to 77 years who have a 30 pack-year smoking history and currently smoke or have quit within the pa st 15 years. Screening should be discontinued once a person has not smoked for 15 years or develops a health problem that substantially limits life expectancy or the ability or willingness to have curat jorge lung surgery. Lung rads 2021 [email or web address]
== END | disposition home or self-care (01) ==
LOC: RADCTMAIN 09:01
PROVIDERS: ATTEND Family Medicine
DX: Z12.2 Encounter for screening for malignant neoplasm of respiratory organs (principal); J84.9 Interstitial pulmonary disease, unspecified; J43.2 Centrilobular emphysema; F17.210 Nicotine dependence, cigarettes, uncomplicated
CPT/HCPCS: 71271

== ENCOUNTER → 2023-03-28 | Outpatient (CLI) | payer BC ==
--- NOTE | 2023-03-29 10:06 | US ---
EXAMINATION TYPE: US carotid duplex BILAT DATE OF EXAM: 03/28/2023 COMPARISON: NONE CLINICAL INDICATION: Male, 57 years old with history of H53.2 DIPLOPIA; Intermittent diplopia x 2 wee ks. Hx DM TECHNIQUE: Carotid duplex ultrasound examination. Indirect Doppler criteria was utilized. FINDINGS: EXAM MEASUREMENTS: RIGHT: Peak Systolic Velocity (PSV) cm/sec ----- Right CCA: 92 ----- Right ICA: 81 ----- Right ECA: 80 ICA/CCA ratio: 0.9 RIGHT: End Diastole cm/sec ----- Right CCA: 30 ----- Right ICA: 37 ----- Right ECA: 14 LEFT: Peak Systolic Velocity (PSV) cm/sec ----- Left CCA: 89 ----- Left ICA: 99 ----- Left ECA: 69 ICA/CCA ratio: 1.1 LEFT: End Diastole cm/sec ----- Left CCA: 27 ----- Left ICA: 25 ----- Left ECA: 19 VERTEBRALS (direction of flow): Right Vertebral: Antegrade Left Vertebral: Antegrade Rhythm: Normal [employer]PER[employer]OR [employer] POOL NOTES: Calcified plaque seen at right bulb, no intimal thickening or elevated velocities noted. IMPRESSION: No hemodynamically significant internal carotid artery stenosis on either side. Criteria for Assigning % of Stenosis / Diameter reduction (Estimation based on the indirect measurements of the internal carotid artery velocities (ICA PSV). 1. Normal (no stenosis)=ICA PSV < 125 cm/s: ratio < 2.0: ICA EDV<40 cm/s. 2. Less than 50% stenosis=ICA PSV < 125 cm/s: ratio < 2.0: ICA EDV<40 cm/s. 3. 50 to 69% stenosis=ICA PSV of 125 to 230 cm/s: ration 2.0 ? 4.0: ICA EDV 40-100 cm/s. 4. Greater than 70% stenosis to near occlusion= ICA PSV > 230 cm/s: ratio > 4.0: ICA EDV > 100 cm/s. 5. Near occlusion= ICA PSV velocities may be low or undetectable: variable ratio and ICA EDV. 6. Total occlusion=unable to detect flow.
--- NOTE | 2023-03-31 12:05 | MR ---
EXAMINATION TYPE: MR brain wo con DATE OF EXAM: 03/28/2023 5:43 PM CLINICAL INDICATION:Male, 57 years old with history of H53.2 DIPLOPIA; PHH, Diplopia, pain in back of head. COMPARISON: None. TECHNIQUE: Multi planar, multi sequence imaging was performed through the brain including: T1, T2, In version recovery, Diffusion weighted imaging, and gradient echo imaging. No gadolinium was given. FINDINGS: The bruno-white junctions, ventricular system, basal cisterns appear unremarkable. Midline structures show no abnormality. Diffusion-weighted imaging shows no evidence of restricted diffusion. The suscep tibility weighted images do not reveal any evidence for micro-hemorrhage. The bone marrow signal is within normal limits. Paranasal sinuses and mastoid air cells: No significant paranasal sinus disease. High T2 signal withi n the mastoid air cells bilaterally. Visualized orbits: Orbital contents are intact. Optic nerves are within normal limits. Optic chiasm i s within normal limits. IMPRESSION: 1. No evidence of intracranial mass or acute/subacute infarct. 2. Trace bilateral mastoid air cell effusion.
== END | disposition home or self-care (01) ==
LOC: RADUSWWP 15:34
PROVIDERS: ATTEND Family Medicine
DX: H74.8X3 Other specified disorders of middle ear and mastoid, bilateral (principal); H53.2 Diplopia; E11.9 Type 2 diabetes mellitus without complications
CPT/HCPCS: 70551; 93880

== ENCOUNTER → 2023-05-07 | Outpatient (CLI) | payer BC ==
--- NOTE | 2023-05-07 16:15 | US ---
EXAMINATION TYPE: US kidneys/renal and bladder DATE OF EXAM: 05/07/2023 COMPARISON: NONE CLINICAL INDICATION: Male, 57 years old with history of R10.9 UNSPECIFIED ABDOMINAL PAIN; Left sided flank pain. EXAM MEASUREMENTS: Right Kidney: 10.2 x 5.2 x 4.3 cm Left Kidney: 11.5 x 5.4 x 4.7 cm Limited due to overlying bowel gas Right Kidney: There is a 1.8 x 1.8 x 1.4cm hypoechoic area seen mid right kidney. Left Kidney: No hydronephrosis or masses seen as best visualized Bladder: wnl Bilateral Jets seen: Yes Incidental finding of prostate calcifications IMPRESSION: Probable cyst mid right kidney.
== END | disposition home or self-care (01) ==
LOC: RADUSWWP 15:28
PROVIDERS: ATTEND Family Medicine
DX: R10.9 Unspecified abdominal pain (principal)
CPT/HCPCS: 76770

== ENCOUNTER → 2023-09-28 | Outpatient (CLI) | payer BC ==
--- NOTE | 2023-10-02 08:41 | CA ---
Exercise Stress Test Report Name: Nico Cohen Exam Date: 09/28/2023 11:10 Exam Location: [place] [facility] Ht (in): 70 Wt (lb): 170 BSA: 1.95 Ordering Phys: EMANI WEINBERG Referring Phys: EMANI WEINBERG Technologist: Theo Wick Age: 58 Gender: M : 1965 Procedure CPT: Indications: ICD-10 Codes: Patient History: Medications: OZEMPIC, ROVUSTATIN, TRYARDY, BREZTRI, OMEPERAZOLE Meds past 24 hrs: Pretest Chest Pain: STRESS TEST Aaron Protocol Exercise Duration (min:sec): 09:[address] Depressions (mm): 0 Angina Score: 0 Griggs Score: 9 Resting HR (bpm): 85 Peak HR (bpm): 153 Resting BP (mmHg): 113 / 79 Peak BP (mmHg): 165 / 86 MPHR: 160 Target HR: 136 % MPHR: 96 METS: 10.3 Total Dose: Peak Dose: Atropine: Double Product: 34039 BP Response: Stress Termination: Reached target heart rate Stress Symptoms: No chest pain or symptoms Stress Summary: The patient's target heart rate was achieved ECG ANALYSIS Resting ECG: Sinus rhythm. Normal conduction. No arrhythmias. Normal repolarization. Stress ECG: No ECG evidence of ischemia with exercise. CONCLUSIONS Patient falls into low-risk group (DTS >= +5). This associates the patient with an annual CV mortality <= 0.5%. Exercise capacity very good at >10 METS. Normal blood pressure response. Normal ST segment response to stress. Normal electrocardiographic response to exercise with no evidence of exercise-induced ischemia Dr. Nicole Yates MD (Electronically Signed) Final Date: 28 September 2023 12:13
== END | disposition home or self-care (01) ==
LOC: RADNMMAIN 10:43
PROVIDERS: ATTEND Family Medicine
DX: R07.9 Chest pain, unspecified (principal); Z91.89 Other specified personal risk factors, not elsewhere classified
CPT/HCPCS: 93017